=== PATIENT | female | born 1935 | race Caucasian/White ===

== ENCOUNTER 2017-10-25 17:40 | Emergency (ER) | payer MEDICARE, OTHER ==
[2017-10-25 18:07] VITALS: BP 141/48
--- NOTE | 2017-10-25 18:15 | EDM.PDOC ---
ED HPI GENERAL MEDICAL PROBLEM - General Chief Complaint: Lower Extremity Injury/Pain Stated Complaint: BROKEN TOE Time Seen by Provider: 10/25/17 18:10 Source of Information: Reports: Patient History Limitations: Reports: No Limitations - History of Present Illness INITIAL COMMENTS - FREE TEXT/NARRATIVE: 82 yo female here with R 5th toe pain after injuring it shortly before arrival. Was changing the cover on her ironing board and caught her toe. Thinks its broken. 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) (none) Right 5-Little toe Pain Score (Numeric/FACES): 1 - Related Data Allergies Allergy/AdvReac Type Severity Reaction Status Date / Time No Known Allergies Allergy Verified 09/18/13 08:54 Home Meds: Home Meds Aspirin [Adult Low Dose Aspirin EC] 81 mg PO DAILY 09/18/13 [History] Calcium Carbonate [Calcium] 1 tab PO DAILY 09/18/13 [History] Insulin Aspart [NovoLOG] 3 unit SQ QID 09/18/13 [History] Insulin Glarg,Human.Rec.Analog [LantUS] 7 unit SUBCUT BEDTIME 09/18/13 [History] Levothyroxine 100 mcg PO ACBRK 09/18/13 [History] Multivitamin [Multi Vitamin Daily] 1 each PO DAILY 09/18/13 [History] [place]-3 Fatty Acids/Fish Oil [Fish Oil 1,200 mg Softgel] 1 each PO DAILY [History] PARoxetine [Paxil] 20 mg PO DAILY 09/18/13 [History] Simvastatin [Zocor] 20 mg PO BEDTIME 09/18/13 [History] Cholecalciferol (Vitamin D3) [Vitamin D3] 1 tab PO DAILY 10/25/17 [History] Past Medical History Other HEENT History: Tooth extraction 12/02/[address] Piyush Escamilla Other Genitourinary History: DM II x 55 years Review of Systems - Review of Systems Review Of Systems: See Below Constitutional: Reports: No Symptoms Musculoskeletal: Reports: Other (R 5th toe pain) Skin: Reports: No Symptoms Neurological: Reports: No Symptoms ED EXAM, GENERAL - Physical Exam Exam: See Below Exam Limited By: No Limitations General Appearance: Alert, WD/WN, No Apparent Distress Extremities: Normal Inspection, No Pedal Edema, Other (R 5th toe tender with palpation, grossly normal on inspection. ). No: Non-Tender, Pedal Edema, Increased Warmth, Mottled, Redness Neurological: Alert, Oriented, CN II-XII Intact, Normal Cognition, No Motor/ Sensory Deficits Psychiatric: Normal Affect, Normal Mood Skin Exam: Warm, Dry, Intact, Normal Color, No Rash Course - Vital Signs Last Recorded V/S: Last Vital Signs Temp 35.7 C 10/25/17 18:10 Pulse 60 10/25/17 18:10 Resp 16 10/25/17 18:10 BP 141/48 H 10/25/17 18:10 Pulse Ox 97 10/25/17 18:10 - Orders/Labs/Meds Orders: Active Orders 24 hr Category Date Time Status Toes Fifth Digit Rt T9 [CR] Stat Exams 10/25/17 18:18 Ordered - Radiology Interpretation Free Text/Narrative:: X-ray R 5th toe-? fx of the prox aspect of the proximal phalanx Departure - Departure Time of Disposition: 18:40 Disposition: Home, Self-Care 01 Condition: Good Clinical Impression: Toe fracture, right Qualifiers: Encounter type: initial encounter Toe: lesser toe Fracture type: closed Phalanx : proximal Fracture alignment: nondisplaced Qualified Code(s): S92.514A - Nondisplaced fracture of proximal phalanx of right lesser toe(s), initial encounter for closed fracture - Discharge Information *PRESCRIPTION DRUG MONITORING PROGRAM REVIEWED*: Not Applicable *COPY OF PRESCRIPTION DRUG MONITORING REPORT IN PATIENT KI: Not Applicable Referrals: PCP,None [Primary Care Provider] - Forms: ED Department Discharge Additional Instructions: Keep toe elevated. Wear post-op shoe for support. Take acetaminophen and/or ibuprofen. Recheck as needed. - My Orders Last 24 Hours: My Active Orders 10/25/17 18:18 Toes Fifth Digit Rt T9 [CR] Stat - Assessment/Plan Last 24 Hours: My Active Orders 10/25/17 18:18 Toes Fifth Digit Rt T9 [CR] Stat
--- NOTE | 2017-10-26 10:16 | CR ---
Right toes There is mild irregularity at the base of the proximal phalanx fifth toe. If there is focal pain at t his location a nondisplaced fracture cannot be excluded. There are hammertoe deformities. The soft ti ssues are unremarkable. Impression: 1. A nondisplaced fracture the proximal phalanx fifth toe cannot be excluded. Clinical correlation re commended.
== END 2017-10-25 18:52 | disposition home or self-care (01) ==
LOC: JP.ED 17:40
DX: S92.514A Nondisplaced fracture of proximal phalanx of right lesser toe(s), initial encounter for closed fracture (principal); Z79.4 Long term (current) use of insulin; Z79.82 Long term (current) use of aspirin; Z79.899 Other long term (current) drug therapy; W22.8XXA Striking against or struck by other objects, initial encounter; E11.9 Type 2 diabetes mellitus without complications
CPT/HCPCS: 73660-26-T9; 73660-T9; 99284

== ENCOUNTER 2019-09-10 17:49 | Inpatient (IN) | payer MEDICARE, OTHER ==
--- NOTE | 2019-09-10 18:38 | EDM.PDOC ---
ED HPI GENERAL MEDICAL PROBLEM - General Chief Complaint: Gastrointestinal Problem Stated Complaint: DIABETIC, VOMITING Time Seen by Provider: 09/10/19 19:53 Source of Information: Reports: Patient History Limitations: Reports: No Limitations - History of Present Illness INITIAL COMMENTS - FREE TEXT/NARRATIVE: 83-year-old female with a history of type 1 diabetes mellitus resents to the ED with acute abdominal pain that is progressively worsening through the day. Onset was this morning when she got out of bed. She has had little intake but continues to urinate on a regular basis. She had a small bowel movement yesterday. Today she is not passing gas. She feels nauseated and has retched but denies emesis. Her blood sugars have been over 200 through the day. Gave herself a small amount of insulin (3 units of regular insulin on a sliding scale). She had a tick bite a week ago and was prescribed a prophylactic doxycycline dose. She went to the clinic today because of abdominal pain. A blood test was obtained however the results were not available to me. She noted her pain worsened through the day and presented to the ED for further evaluation. She has a history of a small bowel obstruction a few years ago. She has had an appendectomy and a tubal ligation in the past. She denies chills or fever. She has a history of atrial fib and takes daily Eliquis. Abdomen Pain Score (Numeric/FACES): 7 - Related Data Allergies Allergy/AdvReac Type Severity Reaction Status Date / Time No Known Allergies Allergy Verified 09/10/19 18:46 Home Meds: Home Meds Calcium Carbonate [Calcium] 1 tab PO DAILY 09/18/13 [History] Insulin Aspart [NovoLOG] 0 unit SQ QID 09/18/13 [History] Insulin Glarg,Human.Rec.Analog [LantUS] 8 unit SUBCUT BEDTIME 09/18/13 [History] Levothyroxine 100 mcg PO ACBRK 09/18/13 [History] Multivitamin [Multi Vitamin Daily] 1 each PO DAILY 09/18/13 [History] [place]-3 Fatty Acids/Fish Oil [Fish Oil 1,200 mg Softgel] 1 each PO DAILY 09/18/13 [History] PARoxetine [Paxil] 20 mg PO DAILY 09/18/13 [History] Simvastatin [Zocor] 20 mg PO BEDTIME 09/18/13 [History] Cholecalciferol (Vitamin D3) [Vitamin D3] 1 tab PO DAILY 10/25/17 [History] Amiodarone [Cordarone] 200 mg PO DAILY 09/10/19 [History] Apixaban [Eliquis] 2.5 mg PO BID 09/10/19 [History] Zolpidem Tartrate 10 mg PO BEDTIME PRN 09/10/19 [History] Past Medical History Other HEENT History: Tooth extraction 12/02/[address] 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 Denies: Fever, Chills Respiratory: Denies: Shortness of Breath Cardiovascular: Denies: Chest Pain Endocrine: Denies: Polydypsia, Polyuria GI/Abdominal: Reports: Nausea, Vomiting. Denies: Flatus : Denies: Dysuria Neurological: Reports: No Symptoms. Denies: Confusion ED EXAM, GI/ABD - Physical Exam Exam: See Below Exam Limited By: No Limitations General Appearance: Alert, WD/WN, Moderate Distress Eyes: Bilateral: Normal Appearance Ears: Normal External Exam, Normal Canal, Normal TMs Throat/Mouth: Normal Inspection Head: Normocephalic Neck: Normal Inspection, Supple, Non-Tender Respiratory/Chest: No Respiratory Distress, Lungs Clear, Normal Breath Sounds Cardiovascular: Normal Peripheral Pulses, Regular Rate, Rhythm GI/Abdominal Exam: Distended, Other (All sounds are hyperactive. She is generally tender on palpation all quadrants.) Neurological: Alert, Oriented, Normal Cognition Course - Vital Signs Text/Narrative:: This patient presented to the emergency department with acute abdominal pain, distention, nausea and vomiting. Her symptoms started with abdominal pain this morning. She went to the clinic and had a nonacute exam and labs. She was discharged home but her symptoms worsen. She came into the ED for further ev aluation. She has a history of an appendectomy, diabetes mellitus type 2 and atrial fibrillation. She is anticoagulated with Eliquis. Patient's exam revealed a generalized tender abdomen with increased bowel sounds. She had normal white blood count, lipase and liver function test. Her basic metabolic profile was unremarkable. She had a nonacute appearing ECG. 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 Dr. Dubois, surgeon was consulted and will be evaluating the patient for possible surgery today. The patient's pain was treated initially with fentanyl. It was switched to Dilaudid. She was given a liter of fluids. Last Recorded V/S: Last Vital Signs Temp 36.0 C L 09/10/19 18:40 Pulse 73 09/10/19 21:23 Resp 16 09/10/19 21:23 BP 196/73 H 09/10/19 21:23 Pulse Ox 100 09/10/19 21:23 - Orders/Labs/Meds Orders: Active Orders 24 hr Category Date Time Status EKG Documentation Completion [RC] ASDIRECTED Care 09/10/19 19:52 Active UA W/MICROSCOPIC [URIN] Stat Lab 09/10/19 19:50 Ordered Sodium Chloride 0.9% [Normal Saline] 1,000 ml Med 09/10/19 20:00 Active IV ASDIRECTED Sodium Chloride 0.9% [Normal Saline] 100 ml Med 09/10/19 20:15 Active IV ASDIRECTED EKG 12 Lead [EK] Stat Ther 09/10/19 19:52 Ordered Medication Orders Sodium Chloride (Normal Saline) 1,000 mls @ 1,000 mls/hr IV ASDIRECTED FRANCISCA Last Admin: 09/10/19 21:25 Dose: 1,000 mls/hr Documented by: HANK Sodium Chloride (Normal Saline) 100 mls @ 3 mls/sec IV ASDIRECTED FRANCISCA Last Admin: 09/10/19 21:25 Dose: 3 mls/sec Documented by: KITA Labs: Laboratory Tests 09/10/19 09/10/19 09/10/19 Range/Units 20:00 20:00 20:00 WBC 8.3 (4.5-11.0) K/uL RBC 4.13 (3.30-5.50) M/uL Hgb 12.0 (12.0-15.0) g/dL Hct 37.6 (36.0-48.0) % MCV 91 (80-98) fL MCH 29 (27-31) pg MCHC 32 (32-36) % Plt Count 219 (150-400) K/uL PT (9.5-12.0) sec INR (0.80-1.20) APTT (27.0-36.0) sec Sodium 135 L (140-148) mmol/L Potassium 4.3 (3.6-5.2) mmol/L Chloride 98 L (100-108) mmol/L Carbon Dioxide 27 (21-32) mmol/L Anion Gap 14.3 H (5.0-14.0) mmol/L BUN 20 H (7-18) mg/dL Creatinine 1.0 (0.6-1.0) mg/dL Est Cr Clr Drug Dosing 34.64 mL/min Estimated GFR (MDRD) 53 L (>60) Glucose 272 H (74-106) mg/dL Lactic Acid 1.1 (0.4-2.0) mmol/L Calcium 8.8 (8.5-10.1) mg/dL Total Bilirubin 0.7 D (0.2-1.0) mg/dL AST 25 (15-37) U/L ALT 31 (12-78) U/L Alkaline Phosphatase 56 (46-116) U/L Troponin I (0.000-0.056) ng/mL Total Protein 7.1 (6.4-8.2) g/dL Albumin 3.7 (3.4-5.0) g/dL Globulin 3.4 (2.3-3.5) g/dL Albumin/Globulin Ratio 1.1 L (1.2-2.2) Lipase 41 L (73-393) U/L Ketones (NEGATIVE) 09/10/19 09/10/19 09/10/19 Range/Units 20:00 20:00 20:00 WBC (4.5-11.0) K/uL RBC (3.30-5.50) M/uL Hgb (12.0-15.0) g/dL Hct (36.0-48.0) % MCV (80-98) fL MCH (27-31) pg MCHC (32-36) % Plt Count (150-400) K/uL PT 10.9 (9.5-12.0) sec INR 1.01 (0.80-1.20) APTT 26.4 L (27.0-36.0) sec Sodium (140-148) mmol/L Potassium (3.6-5.2) mmol/L Chloride (100-108) mmol/L Carbon Dioxide (21-32) mmol/L Anion Gap (5.0-14.0) mmol/L BUN (7-18) mg/dL Creatinine (0.6-1.0) mg/dL Est Cr Clr Drug Dosing mL/min Estimated GFR (MDRD) (>60) Glucose (74-106) mg/dL Lactic Acid (0.4-2.0) mmol/L Calcium (8.5-10.1) mg/dL Total Bilirubin (0.2-1.0) mg/dL AST (15-37) U/L ALT (12-78) U/L Alkaline Phosphatase (46-116) U/L Troponin I < 0.017 (0.000-0.056) ng/mL Total Protein (6.4-8.2) g/dL Albumin (3.4-5.0) g/dL Globulin (2.3-3.5) g/dL Albumin/Globulin Ratio (1.2-2.2) Lipase (73-393) U/L Ketones Negative (NEGATIVE) Meds: Medications Generic Name Dose Route Start Last Admin Trade Name Freq PRN Reason Stop Dose Admin Sodium Chloride 1,000 mls @ 1,000 mls/hr 09/10/19 20:00 09/10/19 21:25 Normal Saline IV 1,000 mls/hr ASDIRECTED FRANCISCA Administration Sodium Chloride 100 mls @ 3 mls/sec 09/10/19 20:15 09/10/19 21:25 Normal Saline IV 3 mls/sec ASDIRECTED FRANCISCA Administration Discontinued Medications Generic Name Dose Route Start Last Admin Trade Name Freq PRN Reason Stop Dose Admin Fentanyl 50 mcg 09/10/19 19:47 09/10/19 20:32 Sublimaze IVPUSH 09/10/19 19:48 50 mcg ONETIME ONE Administration Fentanyl 50 mcg 09/10/19 21:27 09/10/19 21:34 Sublimaze IVPUSH 09/10/19 21:28 50 mcg ONETIME ONE Administration Iopamidol 100 ml 09/10/19 20:06 09/10/19 21:25 Isovue-300 (61%) IV 09/10/19 20:07 100 ml ONETIME ONE Administration Ondansetron HCl 4 mg 09/10/19 19:47 09/10/19 20:27 Zofran IVPUSH 09/10/19 19:48 4 mg ONETIME ONE Administration Sodium Chloride 10 ml 09/10/19 20:06 09/10/19 21:25 Saline Flush FLUSH 09/10/19 20:07 10 ml ONETIME ONE Administration Departure - Departure Time of Disposition: 22:13 Disposition: Admitted As Inpatient 65 Condition: Fair Clinical Impression: Cecal volvulus - Discharge Information Referrals: PCP,None [Primary Care Provider] - Forms: ED Department Discharge Additional Instructions: Patient admitted for probable surgery. Sepsis Event Note (ED) - Focused Exam Vital Signs: Vital Signs Temp Pulse Resp BP Pulse Ox 09/10/19 21:23 73 16 196/73 H 100 09/10/19 20:55 185/70 H 09/10/19 20:25 69 16 197/78 H 99 09/10/19 18:40 36.0 C L 59 L 16 187/73 H 97 09/10/19 18:33 36.0 C L 59 L 16 187/73 H 97 - My Orders Last 24 Hours: My Active Orders 09/10/19 19:50 UA W/MICROSCOPIC [URIN] Stat 09/10/19 19:52 EKG Documentation Completion [RC] ASDIRECTED EKG 12 Lead [EK] Stat 09/10/19 20:00 Sodium Chloride 0.9% [Normal Saline] 1,000 ml IV ASDIRECTED 09/10/19 20:15 Sodium Chloride 0.9% [Normal Saline] 100 ml IV ASDIRECTED - Assessment/Plan Last 24 Hours: My Active Orders 09/10/19 19:50 UA W/MICROSCOPIC [URIN] Stat 09/10/19 19:52 EKG Documentation Completion [RC] ASDIRECTED EKG 12 Lead [EK] Stat 09/10/19 20:00 Sodium Chloride 0.9% [Normal Saline] 1,000 ml IV ASDIRECTED 09/10/19 20:15 Sodium Chloride 0.9% [Normal Saline] 100 ml IV ASDIRECTED
[2019-09-10] MEDS ORDERED: fentaNYL 100 MCG/2 ML SDV IVPUSH ONE ×2 (19:47→21:27)
[2019-09-10] MEDS ORDERED: Ondansetron 4 MG/2 ML SDV IVPUSH ONE (19:47)
[2019-09-10] MEDS ORDERED: Sodium Chloride 0.9% 1,000 ML IV SCH (20:00)
[2019-09-10] MEDS ORDERED: Iopamidol 612 MG/ML 500 ML Multipack Bottle IV ONE (20:06)
[2019-09-10] MEDS ORDERED: Sodium Chloride 0.9% 100 ML IV SCH (20:15)
[2019-09-10] MEDS: Sodium Chloride 0.9% 10 ML Syringe FLUSH ONE ×2 (20:38→21:25)
--- NOTE | 2019-09-10 22:00 | CRLCT ---
INDICATION: Abdominal pain and distension TECHNIQUE: CT abdomen and pelvis acquired with 100 cc Isovue-300 IV contrast. COMPARISON: None FINDINGS: Lower chest: Unremarkable. Liver: Unremarkable. Spleen: Unremarkable. Pancreas: Unremarkable. Gallbladder and bile ducts: Unremarkable. Adrenal glands: Unremarkable. Kidneys: Unremarkable. 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 The cecum is located in the left upper quadrant. The cecum is dilated with feces and air to a maximum diameter of 7.8 cm. The point of twisting can be seen on images numbers [id number] series 2. There is no free air or pneumatosis. There is a small amount of free fluid in the upper abdomen. Vascular structures: Unremarkable. Lymph nodes: Unremarkable. Miscellaneous: Small fat containing bilateral inguinal hernias. Pelvic Organs: Unremarkable. Bones: Unremarkable for age. IMPRESSION: Cecal volvulus. No free air or pneumatosis. Surgical consultation recommended. Findings discussed with Gerardo Drummond at 9:58 p.m. on September 10, 2019. Please note that all CT scans at this facility use dose modulation, iterative reconstruction, and/or weight-based dosing when appropriate to reduce radiation dose to as low as reasonably achievable. Dictated by Sharon Shi MD @ Sep 10 2019 9:46PM Signed by Dr. Sharon Shi @ Sep 10 2019 9:59PM
[2019-09-10] MEDS ORDERED: HYDROmorphone 1 MG/ML Syringe IVPUSH ONE (22:08)
[2019-09-10] MEDS ORDERED: Bupivacaine 0.5%/EPINEPHrine 1:200,000 50 ML MDV ONE (22:49)
[2019-09-10] MEDS ORDERED: metroNIDAZOLE/Normal Saline 100 ML ONE (22:51)
[2019-09-10] MEDS ORDERED: hydrOXYzine HCL 100 MG/2 ML SDV IM PRN (22:52)
[2019-09-10] MEDS ORDERED: Benzocaine/Cetylpyridinium/Menthol Lozenge MUCMEM PRN (22:52)
[2019-09-10] MEDS ORDERED: ceFAZolin 1 GM Vial ONE (22:53)
[2019-09-10] MEDS ORDERED: Sodium Chloride 0.9% 10 ML ONE (22:53)
[2019-09-10] MEDS ORDERED: Rocuronium 50 MG/5 ML Vial ONE (22:54)
[2019-09-10] MEDS ORDERED: Succinylcholine 200 MG/10 ML MDV ONE (22:54)
[2019-09-10] MEDS ORDERED: Ondansetron 4 MG/2 ML SDV ONE (22:54)
[2019-09-10] MEDS ORDERED: Propofol 200 MG/20 ML SDV ONE (22:54)
[2019-09-10] MEDS ORDERED: Neostigmine Methylsulfate 1 MG/ML 5 ML Syringe ONE (22:54)
[2019-09-10] MEDS ORDERED: Dexamethasone 4 MG/ML SDV ONE (22:54)
[2019-09-10] MEDS ORDERED: Glycopyrrolate 0.2 MG/ML 5 ML MDV ONE (22:54)
[2019-09-10] MEDS ORDERED: fentaNYL 250 MCG/5 ML SDV ONE (22:55)
[2019-09-10] MEDS ORDERED: metroNIDAZOLE/Normal Saline 500 MG in Premix Bag 1 BAG IV ONE (22:55)
[2019-09-10] MEDS ORDERED: Sodium Chloride 0.9% 20 ML ONE (23:05)
[2019-09-10] MEDS ORDERED: Scopolamine 1.5 MG Transdermal Patch ONE (23:33)
[2019-09-10] MEDS ORDERED: Lactated Ringers 1,000 ML ONE (23:40)
[2019-09-10] MEDS ORDERED: Ropivacaine 30 ML, dexAMETHasone 8 MG, EPINEPHrine 0.4 MG, Sodium Chloride 0.9% 47.6 ML NERVRT SCH ×4 (23:45)
[2019-09-10] MEDS ORDERED: fentaNYL 100 MCG/2 ML SDV ONE (23:51)
[2019-09-11] MEDS ORDERED: HYDROmorphone/Normal Saline 15 MG/30 ML PCA IV ONE (00:15)
[2019-09-11] MEDS ORDERED: HYDROmorphone/Normal Saline 15 MG/30 ML PCA IV PRN (00:19)
[2019-09-11] MEDS ORDERED: Naloxone 0.4 MG/ML SDV IV PRN (01:00)
[2019-09-11] MEDS: Sodium Chloride 0.9% 1,000 ML IV SCH ×2 (03:23→11:31)
[2019-09-11] MEDS ORDERED: Sodium Chloride 0.9% 250 ML IV SCH (03:30)
[2019-09-11] MEDS ORDERED: Sodium Chloride 0.9% 1,000 ML IV SCH ×2 (05:30→12:30)
[2019-09-11] MEDS: Sodium Chloride 0.9% 250 ML IV ONE ×2 (05:42→06:05)
--- NOTE | 2019-09-11 11:15 | PN ---
DATE OF SERVICE: 09/11/2019 SUBJECTIVE: The patient is doing great. Particularly, pain is well controlled. No nausea, vomiting, shortness of breath, or chest pain. No GI activity yet. OBJECTIVE: VITAL SIGNS: Stable. CARDIOVASCULAR: Regular rhythm and rate. RESPIRATORY: Lungs clear to auscultation bilaterally. SKIN: Incision dressing intact. ASSESSMENT: Status post sigmoid colon resection. PLAN: No need for transfusion today. We will work on diet. Start her on a clear liquid diet. Start Entereg. Hospitalist Service will see the patient today for general medical management. Lincoln Dubois MD /[id number]
[2019-09-11] MEDS ORDERED: Insulin Lispro 100 Unit/ML 3 ML KwikPen SUBCUT ONE ×3 (12:16→17:41)
--- NOTE | 2019-09-11 12:19 | PCM.CONS ---
H&P History of Present Illness - General Date of Service: 09/11/19 Admit Problem/Dx: Admission Diagnosis/Problem Admission Diagnosis/Problem Volvulus of colon Source of Information: Patient, Family, Provider History Limitations: Reports: No Limitations - History of Present Illness Initial Comments - Free Text/Narative: CC: My belly hurt so bad HPI: Bertha presented to the emergency room last night with abdominal pain and nausea. Work-up in the emergency room was suggestive of a sigmoid volvulus. She was taken urgently to surgery for surgical repair. I was asked to see her this morning by Dr. Dubois regarding diabetes management as well as medical management of atrial fibrillation. Bertha reports that she has moderate abdominal pain that she describes as sore. The pain has been slowly getting better since surgery. She has not had to use the [employer] pump very much but when she does it provides almost immediate benefit. Pain is worse when she is trying to move around. She did tolerate some clear liquids this morning. She has not had any fevers. Blood sugars were moderately elevated overnight and have risen since that time with a blood sugar of more than 400 at lunchtime today. She does not have significant nausea. She does not feel short of breath. She had been feeling well prior to onset of symptoms yesterday. Abdomen Pain Score (Numeric/FACES): 5 - Related Data Allergies/Adverse Reactions: Allergies Allergy/AdvReac Type Severity Reaction Status Date / Time No Known Allergies Allergy Verified 09/10/19 18:46 Home Medications: Home Meds Calcium Carbonate [Calcium] 1 tab PO DAILY 09/18/13 [History] Insulin Aspart [NovoLOG] 0 unit SQ QID 09/18/13 [History] Insulin Glarg,Human.Rec.Analog [LantUS] 8 unit SUBCUT BEDTIME 09/18/13 [History] Levothyroxine 100 mcg PO ACBRK 09/18/13 [History] Multivitamin [Multi Vitamin Daily] 1 each PO DAILY 09/18/13 [History] [place]-3 Fatty Acids/Fish Oil [Fish Oil 1,200 mg Softgel] 1 each PO DAILY 10/25 [History] PARoxetine [Paxil] 20 mg PO DAILY 09/18/13 [History] Simvastatin [Zocor] 20 mg PO BEDTIME 09/18/13 [History] Cholecalciferol (Vitamin D3) [Vitamin D3] 1 tab PO DAILY 10/25/17 [History] Amiodarone [Cordarone] 200 mg PO DAILY 09/10/19 [History] Apixaban [Eliquis] 2.5 mg PO BID 09/10/19 [History] Zolpidem Tartrate 10 mg PO BEDTIME PRN 09/10/19 [History] Doxycycline Monohydrate 100 mg PO BID 09/11/19 [History] Past Medical History Other HEENT History: Tooth extraction 12/02/[address] 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 Pertinent positives and negatives are noted in the history of present illness. All other systems were reviewed and were negative except as noted. Exam - Exam Exam: See Below - Vital Signs Vital Signs: Last Vital Signs Temp 36.4 C 09/11/19 07:33 Pulse 75 09/11/19 07:33 Resp 15 09/11/19 07:33 BP 124/41 L 09/11/19 07:33 Pulse Ox 95 09/11/19 07:33 Weight: 58.06 kg - Exam Quality Assessment: Supplemental Oxygen General: Alert, Oriented, Cooperative. No: Mild Distress HEENT: Conjunctiva Clear, Mucosa Moist & [place]. No: Scleral Icterus Neck: Supple, Trachea Midline Lungs: Clear to Auscultation, Normal Respiratory Effort Cardiovascular: Regular Rate, Regular Rhythm GI/Abdominal Exam: Normal Bowel Sounds, Soft, No Distention, Tender Extremities: No Pedal Edema. No: Increased Warmth Peripheral Pulses: 2+: Dorsalis Pedis (L), Dorsalis Pedis (R) Skin: Warm, Dry Neuro Extensive - Mental Status: Alert, Nl Response to Commands Neuro Extensive - Motor, Sensory, Reflexes: No: Dysarthria, Abnormal Motor, Trem or Psychiatric: Alert, Normal Affect - Patient Data Lab Results Last 24 hrs: Laboratory Results - last 24 hr 09/10/19 09/10/19 09/10/19 Range/Units 20:00 20:00 20:00 WBC 8.3 (4.5-11.0) K/uL RBC 4.13 (3.30-5.50) M/uL Hgb 12.0 (12.0-15.0) g/dL Hct 37.6 (36.0-48.0) % MCV 91 (80-98) fL MCH 29 (27-31) pg MCHC 32 (32-36) % Plt Count 219 (150-400) K/uL Neut % (Auto) (36-66) % Lymph % (Auto) (24-44) % [place] % (Auto) (2-6) % Eos % (Auto) (2-4) % Baso % (Auto) (0-1) % PT (9.5-12.0) sec INR (0.80-1.20) APTT (27.0-36.0) sec Sodium 135 L (140-148) mmol/L Potassium 4.3 (3.6-5.2) mmol/L Chloride 98 L (100-108) mmol/L Carbon Dioxide 27 (21-32) mmol/L Anion Gap 14.3 H (5.0-14.0) mmol/L BUN 20 H (7-18) mg/dL Creatinine 1.0 (0.6-1.0) mg/dL Est Cr Clr Drug Dosing 34.64 mL/min Estimated GFR (MDRD) 53 L (>60) Glucose 272 H (74-106) mg/dL Lactic Acid 1.1 (0.4-2.0) mmol/L Calcium 8.8 (8.5-10.1) mg/dL Total Bilirubin 0.7 D (0.2-1.0) mg/dL AST 25 (15-37) U/L ALT 31 (12-78) U/L Alkaline Phosphatase 56 (46-116) U/L Troponin I (0.000-0.056) ng/mL Total Protein 7.1 (6.4-8.2) g/dL Albumin 3.7 (3.4-5.0) g/dL Globulin 3.4 (2.3-3.5) g/dL Albumin/Globulin Ratio 1.1 L (1.2-2.2) Lipase 41 L (73-393) U/L Urine Color (YELLOW) Urine Appearance (CLEAR) Urine pH (5.0-8.0) Ur Specific [place] (1.008-1.030) Urine Protein (NEGATIVE) mg/dL Urine Glucose (UA) (NEGATIVE) mg/dL Urine Ketones (NEGATIVE) mg/dL Urine Occult Blood (NEGATIVE) Urine Nitrite (NEGATIVE) Urine Bilirubin (NEGATIVE) Urine Urobilinogen (0.2-1.0) EU/dL Ur Leukocyte Esterase (NEGATIVE) Urine RBC (0-5) Urine WBC (0-5) Ur Epithelial Cells Amorphous Sediment Urine Bacteria Urine Mucus Ketones (NEGATIVE) 09/10/19 09/10/19 09/10/19 Range/Units 20:00 20:00 20:00 WBC (4.5-11.0) K/uL RBC (3.30-5.50) M/uL Hgb (12.0-15.0) g/dL Hct (36.0-48.0) % MCV (80-98) fL MCH (27-31) pg MCHC (32-36) % Plt Count (150-400) K/uL Neut % (Auto) (36-66) % Lymph % (Auto) (24-44) % [place] % (Auto) (2-6) % Eos % (Auto) (2-4) % Baso % (Auto) (0-1) % PT 10.9 (9.5-12.0) sec INR 1.01 (0.80-1.20) APTT 26.4 L (27.0-36.0) sec Sodium (140-148) mmol/L Potassium (3.6-5.2) mmol/L Chloride (100-108) mmol/L Carbon Dioxide (21-32) mmol/L Anion Gap (5.0-14.0) mmol/L BUN (7-18) mg/dL Creatinine (0.6-1.0) mg/dL Est Cr Clr Drug Dosing mL/min Estimated GFR (MDRD) (>60) Glucose (74-106) mg/dL Lactic Acid (0.4-2.0) mmol/L Calcium (8.5-10.1) mg/dL Total Bilirubin (0.2-1.0) mg/dL AST (15-37) U/L ALT (12-78) U/L Alkaline Phosphatase (46-116) U/L Troponin I < 0.017 (0.000-0.056) ng/mL Total Protein (6.4-8.2) g/dL Albumin (3.4-5.0) g/dL Globulin (2.3-3.5) g/dL Albumin/Globulin Ratio (1.2-2.2) Lipase (73-393) U/L Urine Color (YELLOW) Urine Appearance (CLEAR) Urine pH (5.0-8.0) Ur Specific [place] (1.008-1.030) Urine Protein (NEGATIVE) mg/dL Urine Glucose (UA) (NEGATIVE) mg/dL Urine Ketones (NEGATIVE) mg/dL Urine Occult Blood (NEGATIVE) Urine Nitrite (NEGATIVE) Urine Bilirubin (NEGATIVE) Urine Urobilinogen (0.2-1.0) EU/dL Ur Leukocyte Esterase (NEGATIVE) Urine RBC (0-5) Urine WBC (0-5) Ur Epithelial Cells Amorphous Sediment Urine Bacteria Urine Mucus Ketones Negative (NEGATIVE) 09/10/19 09/11/19 09/11/19 Range/Units 22:25 05:30 05:30 WBC 11.9 H (4.5-11.0) K/uL RBC 3.83 (3.30-5.50) M/uL Hgb 11.3 L (12.0-15.0) g/dL Hct 35.7 L (36.0-48.0) % MCV 93 (80-98) fL MCH 30 (27-31) pg MCHC 32 (32-36) % Plt Count 187 (150-400) K/uL Neut % (Auto) 93 H (36-66) % Lymph % (Auto) 2 L (24-44) % [place] % (Auto) 5 (2-6) % Eos % (Auto) 0 L (2-4) % Baso % (Auto) 0 (0-1) % PT (9.5-12.0) sec INR (0.80-1.20) APTT (27.0-36.0) sec Sodium 137 L (140-148) mmol/L Potassium 4.3 (3.6-5.2) mmol/L Chloride 103 (100-108) mmol/L Carbon Dioxide 22 (21-32) mmol/L Anion Gap 16.3 H (5.0-14.0) mmol/L BUN 17 (7-18) mg/dL Creatinine 1.0 (0.6-1.0) mg/dL Est Cr Clr Drug Dosing 34.64 mL/min Estimated GFR (MDRD) 53 L (>60) Glucose 341 H (74-106) mg/dL Lactic Acid (0.4-2.0) mmol/L Calcium 7.5 L (8.5-10.1) mg/dL Total Bilirubin (0.2-1.0) mg/dL AST (15-37) U/L ALT (12-78) U/L Alkaline Phosphatase (46-116) U/L Troponin I (0.000-0.056) ng/mL Total Protein (6.4-8.2) g/dL Albumin (3.4-5.0) g/dL Globulin (2.3-3.5) g/dL Albumin/Globulin Ratio (1.2-2.2) Lipase (73-393) U/L Urine Color Yellow (YELLOW) Urine Appearance Clear (CLEAR) Urine pH 7.0 (5.0-8.0) Ur Specific [place] 1.020 (1.008-1.030) Urine Protein Negative (NEGATIVE) mg/dL Urine Glucose (UA) 500 H (NEGATIVE) mg/dL Urine Ketones 80 H (NEGATIVE) mg/dL Urine Occult Blood Trace-intact H (NEGATIVE) Urine Nitrite Negative (NEGATIVE) Urine Bilirubin Negative (NEGATIVE) Urine Urobilinogen 0.2 (0.2-1.0) EU/dL Ur Leukocyte Esterase Negative (NEGATIVE) Urine RBC 0-5 (0-5) Urine WBC Not seen (0-5) Ur Epithelial Cells Not seen Amorphous Sediment Not seen Urine Bacteria Not seen Urine Mucus Not seen Ketones (NEGATIVE) Result Diagrams: 09/11/19 05:30 09/11/19 05:30 Imaging Impressions Last 24 hrs: CT scan of the abdomen and pelvis-images personally reviewed-there appears to be a cecal volvulus. No free air or evidence for perforation. No other acute findings. Sepsis Event Note - Evaluation Sepsis Screening Result: No Definite Risk - Focused Exam Vital Signs: Vital Signs Temp Temp Pulse Resp BP BP Pulse Ox 09/11/19 07:33 36.4 C 75 15 124/41 L 95 09/11/19 07:22 94 L 09/11/19 04:30 36.5 C 76 16 120/60 95 09/11/19 03:00 76 16 110/60 95 09/11/19 02:30 73 16 116/48 L 95 09/11/19 02:00 73 116/54 L 09/11/19 01:30 75 16 130/42 L 96 09/11/19 01:15 72 16 137/80 98 09/11/19 01:14 98 09/11/19 01:00 36.8 C 72 16 154/45 H 99 09/11/19 00:40 36.0 C L 72 16 160/54 H 99 09/11/19 00:35 73 16 162/57 H 98 09/11/19 00:30 76 16 172/63 H 99 09/11/19 00:25 78 16 182/63 H 99 09/11/19 00:20 36.2 C 82 16 183/66 H 99 Date Exam was Performed: 09/11/19 Time Exam was Performed: 16:32 *Q Meaningful Use (ADM) - VTE Risk Assess *Q Each Risk Factor Represents 1 Point: None Total Score 1 Point Risk Factors: 0 Each Risk Factor Represents 2 Points: Major surgery greater than 45 minutes Total Score 2 Point Risk Factors: 2 Each Risk Factor Represents 3 Points: Age 75 Years or Greater Total Score 3 Point Risk Factors: 3 Each Risk Factor Represents 5 Points: None Total Score 5 Point Risk Factors: 0 Venous Thromboembolism Risk Factor Score *Q: 5 Consult PN Assessment/Plan POD#: 1 Procedures: Procedures ASSAY OF TROPONIN QUANT (09/18/13) ASSAY THYROID STIM HORMONE (09/18/13) COMPLETE CBC W/AUTO DIFF WBC (09/18/13) COMPREHEN METABOLIC PANEL (09/18/13) ECG/MONITORING AND ANALYSIS (11/13/13) EMERGENCY DEPT VISIT (10/25/17) EMERGENCY DEPT VISIT (12/05/14) EMERGENCY DEPT VISIT (12/05/14) EMERGENCY DEPT VISIT (09/18/13) REMOTE 30 DAY ECG REV/REPORT (11/13/13) ROUTINE VENIPUNCTURE (09/18/13) X-RAY EXAM OF TOE(S) (10/25/17) Problem List Initiated/Reviewed/Updated: Yes My Orders Last 24 Hours: My Active Orders 09/11/19 08:22 Communication Order [RC] PRN Communication Order [RC] PRN Diabetes Education [RC] Click to Edit Notify Provider [RC] PRN 09/11/19 11:00 Insulin Lispro [HumaLOG] See Protocol SUBCUT QIDACANDBED 09/11/19 12:16 Insulin Lispro [HumaLOG] 5 unit SUBCUT ONETIME ONE 09/11/19 12:30 Sodium Chloride 0.9% [Normal Saline] 1,000 ml IV ASDIRECTED 09/11/19 13:30 GLUCOSE POC LAB TO COLLECT [POC] ONETIME 09/11/19 16:30 GLUCOSE POC LAB TO COLLECT [POC] QIDACANDBED 09/11/19 21:00 GLUCOSE POC LAB TO COLLECT [POC] QIDACANDBED Insulin Glarg,Human.Rec.Analog [LantUS Solostar] 8 units SUBCUT BEDTIME 09/12/19 05:00 BASIC METABOLIC PANEL,BMP [CHEM] Timed CBC W/O DIFF,HEMOGRAM [HEME] Timed (1) 09/12/19 07:30 GLUCOSE POC LAB TO COLLECT [POC] QIDACANDBED 09/12/19 11:30 GLUCOSE POC LAB TO COLLECT [POC] QIDACANDBED 09/12/19 16:30 GLUCOSE POC LAB TO COLLECT [POC] QIDACANDBED 09/12/19 21:00 GLUCOSE POC LAB TO COLLECT [POC] QIDACANDBED 09/13/19 07:30 GLUCOSE POC LAB TO COLLECT [POC] QIDACANDBED 09/13/19 11:30 GLUCOSE POC LAB TO COLLECT [POC] QIDACANDBED 09/13/19 16:30 GLUCOSE POC LAB TO COLLECT [POC] QIDACANDBED 09/13/19 21:00 GLUCOSE POC LAB TO COLLECT [POC] QIDACANDBED 09/14/19 07:30 GLUCOSE POC LAB TO COLLECT [POC] QIDACANDBED 09/14/19 11:30 GLUCOSE POC LAB TO COLLECT [POC] QIDACANDBED 09/14/19 16:30 GLUCOSE POC LAB TO COLLECT [POC] QIDACANDBED 09/14/19 21:00 GLUCOSE POC LAB TO COLLECT [POC] QIDACANDBED 09/15/19 07:30 GLUCOSE POC LAB TO COLLECT [POC] QIDACANDBED 09/15/19 11:30 GLUCOSE POC LAB TO COLLECT [POC] QIDACANDBED 09/15/19 16:30 GLUCOSE POC LAB TO COLLECT [POC] QIDACANDBED 09/15/19 21:00 GLUCOSE POC LAB TO COLLECT [POC] QIDACANDBED 09/16/19 07:30 GLUCOSE POC LAB TO COLLECT [POC] QIDACANDBED 09/16/19 11:30 GLUCOSE POC LAB TO COLLECT [POC] QIDACANDBED 09/16/19 16:30 GLUCOSE POC LAB TO COLLECT [POC] QIDACANDBED Plan: Assessment and plan - 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 Doing well postoperatively with good pain control. Vital signs are stable. -IV fluids at 75 mL/h -Additional management per surgical team Type 1 diabetes mellitus-patient has had diabetes for more than 50 years with excellent control. Blood sugars have been rising since surgery. -Low-dose sliding scale insulin with additional bolus dosing as needed -Continue long-acting insulin at bedtime -Accu-Cheks 4 times daily and as needed in between Chronic atrial fibrillation-chronically anticoagulated. Good rate control so far. -Continue medical management -Restart anticoagulation when safe from a surgical standpoint, anticipate star ting tomorrow Thank you for the interesting consultation. The hospitalist service will continue to follow along. Please do not hesitate to call if there are specific questions or concerns. Keyur Gomez MD Requesting Provider: Dr. Dubois Date Consult Requested: 09/11/19 Reason for Consult: Medical management of diabetes and atrial fibrillation Patient History Reviewed: Yes Admission H&P Reviewed: No (Not currently available) Notified Requestor: Yes Time Spent (in minutes): 50
[2019-09-11] MEDS: Insulin Lispro 100 Unit/ML 3 ML KwikPen SUBCUT SCH ×3 (12:31→21:24)
[2019-09-11] MEDS: Insulin Glargine,Human Rec. Analog 100 Units/ML 3 ML Pen SUBCUT SCH (21:23)
[2019-09-12] MEDS ORDERED: Acetaminophen/HYDROcodone 325-5 MG Tab PO PRN (08:02)
[2019-09-12] MEDS ORDERED: Morphine 4 MG/ML Syringe IVPUSH PRN (08:03)
[2019-09-12] MEDS: Insulin Lispro 100 Unit/ML 3 ML KwikPen SUBCUT SCH ×4 (08:19→21:28)
--- NOTE | 2019-09-12 09:23 | PN ---
DATE OF SERVICE: 09/12/2019 SUBJECTIVE: The patient is doing very well. Pain is well controlled. No nausea, vomiting, shortness of breath, or chest pain. No GI activity yet. OBJECTIVE: VITAL SIGNS: Stable. CARDIOVASCULAR: Regular rhythm and rate. RESPIRATORY: Lungs clear to auscultation bilaterally. SKIN: Incision healing well. ASSESSMENT: Status post right hemicolectomy. PLAN: We will continue the clear liquids, but we will start with Ensure today. Also continue the Entereg. We will work on ambulation. In addition, we will stop her [employer]GE[employer], convert her to p.o. pain medications. Medicine Service will continue to work on fluid, electrolytes, and her diabetes. Lincoln Dubois MD /[id number]
[2019-09-12] MEDS: PARoxetine 20 MG Tab PO SCH (11:26)
[2019-09-12] MEDS: Amiodarone 200 MG Tab PO SCH (11:26)
--- NOTE | 2019-09-12 11:50 | PCM.CONSN ---
- General Info Date of Service: 09/12/19 Subjective Update: No acute events overnight. Patient has pretty good pain control with her abdominal pain at this time. No fevers. Blood sugars remain elevated but seem to be slowly trending down. She had some flushing this morning that seems to be getting better after her ACETYLENE TORCH BURNER was discontinued. She is not passing gas and has not had a bowel movement. Functional Status: Reports: Pain Controlled, Tolerating Diet - Review of Systems General: Denies: Fever Gastrointestinal: Denies: Flatus - Patient Data Vitals - Most Recent: Last Vital Signs Temp 36.1 C 09/12/19 10:36 Pulse 56 L 09/12/19 10:36 Resp 16 09/12/19 06:53 BP 120/36 L 09/12/19 10:36 Pulse Ox 97 09/12/19 10:36 Weight - Most Recent: 58.06 kg I&O - Last 24 Hours: Intake & Output 09/11/19 09/12/19 09/12/19 22:59 06:59 14:59 Intake Total 2164 1156 Output Total 180 350 Balance 1984 806 Lab Results Last 24 Hours: Laboratory Results - last 24 hr 09/12/19 09/12/19 09/12/19 Range/Units 05:00 05:00 11:30 WBC 11.2 H (4.5-11.0) K/uL RBC 3.41 (3.30-5.50) M/uL Hgb 10.0 L (12.0-15.0) g/dL Hct 32.3 L (36.0-48.0) % MCV 95 (80-98) fL MCH 29 (27-31) pg MCHC 31 L (32-36) % Plt Count 191 (150-400) K/uL Sodium 132 L (140-148) mmol/L Potassium 4.9 (3.6-5.2) mmol/L Chloride 102 (100-108) mmol/L Carbon Dioxide 23 (21-32) mmol/L Anion Gap 11.9 (5.0-14.0) mmol/L BUN 26 H D (7-18) mg/dL Creatinine 1.1 H (0.6-1.0) mg/dL Est Cr Clr Drug Dosing 31.48 mL/min Estimated GFR (MDRD) 47 L (>60) Glucose 278 H (74-106) mg/dL POC Glucose 332 H (74-106) MG/DL Calcium 7.3 L (8.5-10.1) mg/dL Med Orders - Current: Current Medications Hydrocodone Bitart/Acetaminophen (Santaquin 325-5 Mg) 1 tab PO Q4H PRN PRN Reason: Pain (mild 1-3) Hydrocodone Bitart/Acetaminophen (Santaquin 325-5 Mg) 2 tab PO Q4H PRN PRN Reason: Pain (moderate 4-6) Alvimopan (Entereg) 12 mg PO Q12H [facility] Stop: 09/17/19 20:01 Last Admin: 09/12/19 08:19 Dose: 12 mg Documented by: Amiodarone HCl (Cordarone) 200 mg PO DAILY [facility] Last Admin: 09/12/19 11:26 Dose: 200 mg Documented by: Apixaban (Eliquis) 2.5 mg PO BID [facility] Benzocaine/Menthol (Cepacol Sore Throat) 1 lozenge MUCMEM Q1H PRN PRN Reason: Sore Throat Doxycycline Hyclate (Vibramycin) 100 mg PO BID [facility] Hydroxyzine HCl (Vistaril) 100 mg IM Q4H PRN PRN Reason: Nausea Sodium Chloride (Normal Saline) 250 mls @ 250 mls/hr IV ASDIRECTED [facility] Last Admin: 09/11/19 04:12 Dose: 250 mls/hr Documented by: Sodium Chloride (Normal Saline) 1,000 mls @ 75 mls/hr IV ASDIRECTED [facility] Last Admin: 09/11/19 23:37 Dose: 75 mls/hr Documented by: Insulin Glargine (Lantus Solostar) 8 units SUBCUT BEDTIME [facility] Last Admin: 09/11/19 21:23 Dose: 8 units Documented by: Insulin Human Lispro (Humalog) 0 unit SUBCUT QIDACANDBED [facility]; Protocol Last Admin: 09/12/19 11:29 Dose: 8 units Documented by: Levothyroxine Sodium (Synthroid) 100 mcg PO DAILY@729 [facility] Morphine Sulfate (Morphine) 1 - 4 mg IVPUSH Q2H PRN PRN Reason: Pain Paroxetine HCl (Paxil) 20 mg PO DAILY [facility] Last Admin: 09/12/19 11:26 Dose: 20 mg Documented by: Simvastatin (Zocor) 20 mg PO BEDTIME [facility] Discontinued Medications Bupivacaine HCl/Epinephrine Bitart (Marcaine 0.5%/Epinephrine 1:200,000) Confirm Administered Dose 50 ml .ROUTE .STK-MED ONE Stop: 09/10/19 22:50 Cefazolin Sodium (Ancef) Confirm Administered Dose 2 gm .ROUTE .STK-MED ONE Stop: 09/10/19 22:54 Ropivacaine 30 ml/Dexamethasone 8 mg/Epinephrine HCl 0.4 mg/ Sodium Chloride 47.6 ml 0 ml NERVRT ASDIRECTED [facility] Dexamethasone (Dexamethasone) Confirm Administered Dose 4 mg .ROUTE .STK-MED ONE Stop: 09/10/19 22:55 Fentanyl (Sublimaze) 50 mcg IVPUSH ONETIME ONE Stop: 09/10/19 19:48 Last Admin: 09/10/19 20:32 Dose: 50 mcg Documented by: Fentanyl (Sublimaze) 50 mcg IVPUSH ONETIME ONE Stop: 09/10/19 21:28 Last Admin: 09/10/19 21:34 Dose: 50 mcg Documented by: Fentanyl (Sublimaze) Confirm Administered Dose 250 mcg .ROUTE .STK-MED ONE Stop: 09/10/19 22:56 Fentanyl (Sublimaze) Confirm Administered Dose 100 mcg .ROUTE .STK-MED ONE Stop: 09/10/19 23:52 Glycopyrrolate (Robinul) Confirm Administered Dose 1 mg .ROUTE .STK-MED ONE Stop: 09/10/19 22:55 Hydromorphone HCl (Dilaudid) 1 mg IVPUSH ONETIME ONE Stop: 09/10/19 22:09 Last Admin: 09/10/19 22:39 Dose: Not Given Documented by: Hydromorphone HCl (Dilaudid Inside Phone Sales 15 Mg In Ns 30 Ml) Confirm Administered Dose 15 mg IV .STK-MED ONE Stop: 09/11/19 00:16 Last Admin: 09/11/19 00:28 Dose: Not Given Documented by: Hydromorphone HCl (Dilaudid Inside Phone Sales 15 Mg In Ns 30 Ml) 0 mg IV ASDIRECTED PRN; Protocol PRN Reason: ACETYLENE TORCH BURNER PAIN CONTROL Last Admin: 09/11/19 00:20 Dose: 15 mg Documented by: Sodium Chloride (Normal Saline) 1,000 mls @ 1,000 mls/hr IV ASDIRECTED [facility] Last Admin: 09/10/19 21:25 Dose: 1,000 mls/hr Documented by: Sodium Chloride (Normal Saline) 100 mls @ 3 mls/sec IV ASDIRECTED [facility] Last Admin: 09/10/19 21:25 Dose: 3 mls/sec Documented by: Metronidazole (Flagyl 500 Mg In Ns 100 Ml) Confirm Administered Dose 100 mls @ as directed .ROUTE .STK-MED ONE Stop: 09/10/19 22:52 Sodium Chloride (Normal Saline) Confirm Administered Dose 10 mls @ as directed .ROUTE .[facility] ONE Stop: 09/10/19 22:54 Sodium Chloride (Normal Saline) 1,000 mls @ 125 mls/hr IV ASDIRECTED [facility] Last Admin: 09/11/19 11:31 Dose: 125 mls/hr Documented by: Metronidazole 500 mg/ Premix 100 mls @ 100 mls/hr IV ONETIME ONE Stop: 09/10/19 23:54 Last Admin: 09/10/19 23:10 Dose: 100 mls/hr Documented by: Sodium Chloride (Normal Saline) Confirm Administered Dose 20 mls @ as directed .ROUTE .[facility] ONE Stop: 09/10/19 23:06 Lactated Ringer's (Ringers, Lactated) Confirm Administered Dose 1,000 mls @ as directed .ROUTE .[facility] ONE Stop: 09/10/19 23:41 Sodium Chloride (Normal Saline) 250 mls @ 250 mls/hr IV NOW ONE Stop: 09/11/19 06:44 Last Admin: 09/11/19 06:05 Dose: Not Given Documented by: Insulin Human Lispro (Humalog) 0 unit SUBCUT QIDACANDBED [facility]; Protocol Last Admin: 09/12/19 08:19 Dose: 3 unit Documented by: Insulin Human Lispro (Humalog) 5 unit SUBCUT ONETIME ONE Stop: 09/11/19 12:17 Last Admin: 09/11/19 12:32 Dose: 5 units Documented by: Insulin Human Lispro (Humalog) 5 unit SUBCUT ONETIME ONE Stop: 09/11/19 13:41 Last Admin: 09/11/19 13:52 Dose: 5 units Documented by: Insulin Human Lispro (Humalog) 10 unit SUBCUT ONETIME ONE Stop: 09/11/19 17:42 Last Admin: 09/11/19 17:45 Dose: 10 units Documented by: Iopamidol (Isovue-300 (61%)) 100 ml IV ONETIME ONE Stop: 09/10/19 20:07 Last Admin: 09/10/19 21:25 Dose: 100 ml Documented by: Naloxone HCl (Narcan) 0.1 mg IV ASDIRECTED PRN PRN Reason: decreased respiratory rate Neostigmine Methylsulfate (Neostigmine) Confirm Administered Dose 5 mg .ROUTE .STK-MED ONE Stop: 09/10/19 22:55 Ondansetron HCl (Zofran) 4 mg IVPUSH ONETIME ONE Stop: 09/10/19 19:48 Last Admin: 09/10/19 20:27 Dose: 4 mg Documented by: Ondansetron HCl (Zofran) Confirm Administered Dose 4 mg .ROUTE .STK-MED ONE Stop: 09/10/19 22:55 Propofol (Diprivan 20 Ml) Confirm Administered Dose 200 mg .ROUTE .STK-MED ONE Stop: 09/10/19 22:55 Rocuronium [place] (Zemuron) Confirm Administered Dose 50 mg .ROUTE .STK-MED ONE Stop: 09/10/19 22:55 Scopolamine (Transderm-Scop) Confirm Administered Dose 1.5 mg .ROUTE .STK-MED ONE Stop: 09/10/19 23:34 Sodium Chloride (Saline Flush) 10 ml FLUSH ONETIME ONE Stop: 09/10/19 20:07 Last Admin: 09/10/19 21:25 Dose: 10 ml Documented by: Succinylcholine Chloride (Quelicin) Confirm Administered Dose 200 mg .ROUTE .STK-MED ONE Stop: 09/10/19 22:55 - Exam Quality Assessment: Supplemental Oxygen General: Alert, Oriented, Cooperative, No Acute Distress Lungs: Clear to Auscultation, Normal Respiratory Effort Cardiovascular: Regular Rate, Regular Rhythm GI/Abdominal Exam: Normal Bowel Sounds, Soft, No Distention Extremities: No Pedal Edema. No: Increased Warmth Skin: Warm, Dry Psy/Mental Status: Alert, Normal Affect Sepsis Event Note - Evaluation Sepsis Screening Result: No Definite Risk - Focused Exam Vital Signs: Vital Signs Temp Pulse Resp BP Pulse Ox 09/12/19 10:36 36.1 C 56 L 120/36 L 97 09/12/19 06:53 36.1 C 16 121/44 L 94 L 09/12/19 03:08 36.2 C 57 L 18 136/46 L 90 L 09/12/19 01:00 92 L Date Exam was Performed: 09/12/19 Time Exam was Performed: 17:50 Consult PN Assessment/Plan POD#: 2 Procedures: Procedures ASSAY OF TROPONIN QUANT (09/18/13) ASSAY THYROID STIM HORMONE (09/18/13) COMPLETE CBC W/AUTO DIFF WBC (09/18/13) COMPREHEN METABOLIC PANEL (09/18/13) ECG/MONITORING AND ANALYSIS (11/13/13) EMERGENCY DEPT VISIT (10/25/17) EMERGENCY DEPT VISIT (12/05/14) EMERGENCY DEPT VISIT (12/05/14) EMERGENCY DEPT VISIT (09/18/13) REMOTE 30 DAY ECG REV/REPORT (11/13/13) ROUTINE VENIPUNCTURE (09/18/13) X-RAY EXAM OF TOE(S) (10/25/17) Problem List Initiated/Reviewed/Updated: Yes My Orders Last 24 Hours: My Active Orders 09/11/19 12:19 Antiembolic Devices [RC] .Routine SCD [Sequential Compression Device] [OM.PC] Routine 09/11/19 12:30 Sodium Chloride 0.9% [Normal Saline] 1,000 ml IV ASDIRECTED 09/11/19 21:00 Insulin Glarg,Human.Rec.Analog [LantUS Solostar] 8 units SUBCUT BEDTIME 09/12/19 10:45 Amiodarone [Cordarone] 200 mg PO DAILY PARoxetine [Paxil] 20 mg PO DAILY 09/12/19 11:00 Insulin Lispro [HumaLOG] See Protocol SUBCUT QIDACANDBED 09/12/19 11:48 DC Santos Catheter [Urinary Catheter Removal] [RC] PER UNIT ROUTINE 09/12/19 11:49 PT Evaluation and Treatment [CONS] Routine 09/12/19 16:30 GLUCOSE POC LAB TO COLLECT JPM [POC] Routine 09/12/19 21:00 GLUCOSE POC LAB TO COLLECT JPM [POC] Routine Apixaban [Eliquis] 2.5 mg PO BID Doxycycline [Vibramycin] 100 mg PO BID Simvastatin [Zocor] 20 mg PO BEDTIME 09/13/19 05:00 BASIC METABOLIC PANEL,BMP [CHEM] Timed CBC W/O DIFF,HEMOGRAM [HEME] Timed (1) 09/13/19 07:30 GLUCOSE POC LAB TO COLLECT [POC] QIDACANDBED Levothyroxine [Synthroid] 100 mcg PO DAILY@0730 09/13/19 11:30 GLUCOSE POC LAB TO COLLECT [POC] QIDACANDBED 09/13/19 16:30 GLUCOSE POC LAB TO COLLECT [POC] QIDACANDBED 09/13/19 21:00 GLUCOSE POC LAB TO COLLECT [POC] QIDACANDBED 09/14/19 07:30 GLUCOSE POC LAB TO COLLECT [POC] QIDACANDBED 09/14/19 11:30 GLUCOSE POC LAB TO COLLECT [POC] QIDACANDBED 09/14/19 16:30 GLUCOSE POC LAB TO COLLECT [POC] QIDACANDBED 09/14/19 21:00 GLUCOSE POC LAB TO COLLECT [POC] QIDACANDBED 09/15/19 07:30 GLUCOSE POC LAB TO COLLECT [POC] QIDACANDBED 09/15/19 11:30 GLUCOSE POC LAB TO COLLECT [POC] QIDACANDBED 09/15/19 16:30 GLUCOSE POC LAB TO COLLECT [POC] QIDACANDBED 09/15/19 21:00 GLUCOSE POC LAB TO COLLECT [POC] QIDACANDBED 09/16/19 07:30 GLUCOSE POC LAB TO COLLECT [POC] QIDACANDBED 09/16/19 11:30 GLUCOSE POC LAB TO COLLECT [POC] QIDACANDBED 09/16/19 16:30 GLUCOSE POC LAB TO COLLECT [POC] QIDACANDBED Plan: Assessment and plan - 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 Doing well postoperatively with good pain control. Vital signs are stable. Not passing gas yet. -IV fluids at 75 mL/h, may saline lock once p.o. intake improves -Additional management per surgical team -Santos catheter will be removed today Type 1 diabetes mellitus-moderate elevation of blood sugars with some improvement over the past 24 hours. -Medium-dose sliding scale insulin with additional bolus dosing as needed -Continue long-acting insulin at bedtime -Accu-Cheks 4 times daily and as needed in between Chronic atrial fibrillation-chronically anticoagulated. Good rate control so far. -Continue medical management -Restart anticoagulation adlagisa Gomez MD
[2019-09-12] MEDS: Apixaban 5 MG Tab PO SCH (20:26)
[2019-09-12] MEDS: Doxycycline 100 MG Cap PO SCH (20:26)
[2019-09-12] MEDS ORDERED: Simvastatin 20 MG Tab PO SCH (21:00)
[2019-09-12] MEDS: Insulin Glargine,Human Rec. Analog 100 Units/ML 3 ML Pen SUBCUT SCH (21:29)
[2019-09-12] MEDS: Acetaminophen/HYDROcodone 325-5 MG Tab PO PRN (22:22)
[2019-09-13] MEDS: Acetaminophen/HYDROcodone 325-5 MG Tab PO PRN (02:45)
[2019-09-13] MEDS ORDERED: Levothyroxine 100 MCG Tab PO SCH (07:30)
[2019-09-13 08:24] VITALS: BP 190/75; PULSE 70
[2019-09-13] MEDS: Amiodarone 200 MG Tab PO SCH (08:39)
[2019-09-13] MEDS: PARoxetine 20 MG Tab PO SCH (08:40)
[2019-09-13] MEDS: Apixaban 5 MG Tab PO SCH (08:40)
[2019-09-13] MEDS: Doxycycline 100 MG Cap PO SCH (08:40)
[2019-09-13] MEDS: Insulin Lispro 100 Unit/ML 3 ML KwikPen SUBCUT SCH ×3 (09:12→12:13)
--- NOTE | 2019-09-13 10:40 | PN ---
DATE OF SERVICE: 09/13/2019 SUBJECTIVE: The patient is doing very well today. Pain is 0/10 to 1/10. No nausea, vomiting, shortness of breath, or chest pain. She is afebrile with a normal white count. OBJECTIVE: VITAL SIGNS: Stable. CARDIOVASCULAR: Regular rhythm and rate. RESPIRATORY: Lungs clear to auscultation bilaterally. ASSESSMENT: Status post right hemicolectomy. PLAN: The patient will be discharged today. See discharge summary for further details. Lincoln Dubois MD /[id number]
--- NOTE | 2019-09-13 13:28 | DISCH ---
DISCHARGE SUMMARY: Status post right hemicolectomy. SUMMARY OF HOSPITAL COURSE: This is a pleasant 83-year-old female who underwent a right hemicolectomy emergently due to a cecal volvulus. The patient did well through her hospitalization. Prior to discharge, her pain was well controlled. She had no nausea, vomiting, shortness of breath, or chest pain. She is having daily bowel movements, she was afebrile, and her white blood cell count was normal. FOLLOWUP: With Surgery in 7 to 14 days. ACTIVITY: No lifting greater than 30 pounds for 30 days. DISCHARGE MEDICATIONS: Please see MAR.
--- NOTE | 2019-09-13 13:40 | OR ---
DATE OF PROCEDURE: 09/10/2019 SURGEON: Lincoln Dubois MD PROCEDURES PERFORMED: 1. Right hemicolectomy with anastomosis (96886). 2. Removal of peritoneal fluid, right abdomen (69898). COMPLICATIONS: None. GERIATRIC PSYCHIATRIST: None. PREOPERATIVE DIAGNOSIS: Cecal volvulus. POSTOPERATIVE DIAGNOSIS: Cecal volvulus. RISKS: Risks, benefits, alternatives, and limitations including, but not limited to infection, bleeding, and anastomotic failure, sepsis, , and other risks not listed here were explained to the patient and family, and they wished to proceed. PROCEDURE IN DETAIL: The patient was placed in supine position. A midline abdominal incision was made. This was approximately 10 cm in size. This was carried down with electrocautery, and the peritoneum was opened sharply. The volvulus was readily identified and was consistent with a cecal volvulus. This was around a band, which was also ligated. The patient was hemodynamically stable. There was a fluid collection in the right quadrant, which was suctioned and removed. There was no evidence of perforation. Therefore, it was determined to proceed with a right hemicolectomy. The ileum was transected using pizano load staplers and the colon would be resected at the level of the transverse colon. In conjunction with this for full mobilization to create anastomosis, the splenic flexure was mobilized using electrocautery. No abnormal bleeding was noted. Mesenteric staple loads were used to transect the mesentery. Because this was not an oncological case, the mesentery was transected in proximity to the bowel to further preserve the vascular arcade. The anastomosis would be performed extracorporeally in a [id number] functional end-to-end anastomosis. This was performed with double 60 load staplers. The anastomosis was performed in this manner by using electrocautery to create a defect, firing the simba x2, using Allis clamps to tent the defect, and transecting and closing the defect with another enteric load. The "anti-zip" stitch was also placed. The mesenteric defect was closed with 3-0 Vicryl in a running fashion. The abdomen was irrigated. The anastomosis was irrigated. Gloves and gown were changed. No gross spillage was noted at any time during this procedure. Tisseel was placed on the anastomosis. This was then placed back into the abdomen. The fascia was closed with #1 Vicryl in a running suture and simba were applied. The patient tolerated the procedure well. Lincoln Dubois MD /[id number]
--- NOTE | 2019-09-13 15:39 | CONS ---
DATE OF SERVICE: 09/10/2019 REFERRING PHYSICIAN: CONSULTING PHYSICIAN: Lincoln Dubois MD REASON FOR CONSULTATION: Evaluation of abdominal pain. HISTORY OF PRESENT ILLNESS: This is a pleasant 83-year-old female who presented to the emergency room with significant abdominal pain and nausea. The patient underwent a CT scan, which showed a cecal volvulus. Her pain is described as 5 to 6/10. This was modified by uncontrolled diabetes. PAST MEDICAL HISTORY: Atrial fibrillation, hypercholesterolemia, Eliquis use, hypertension. Her diabetes is reportedly type 1, uncontrolled, over approximately 55 years. PAST SURGICAL HISTORY: Includes tubal ligation and appendectomy. SOCIAL HISTORY: She is not a smoker. FAMILY HISTORY: Noncontributory. REVIEW OF SYSTEMS: GENERAL: The patient is appropriate for her condition. HEENT: No changes. CARDIOVASCULAR: She does have a history of atrial fibrillation. RESPIRATORY: No current shortness of breath. GASTROINTESTINAL: As above. GENITOURINARY: No dysuria. NEUROLOGIC: No symptoms. PSYCH: No changes. The remainder of systems are reviewed and are negative. PHYSICAL EXAMINATION: VITAL SIGNS: Temperature 97.7, blood pressure 120/60, respirations 16, and 95% on 2 L. HEENT: Pupils are equal. NECK: Supple. LUNGS: Clear. CARDIOVASCULAR: Regular rhythm and rate. ABDOMEN: Mildly distended. Mild pain with palpation. EXTREMITIES: Full range of motion. NEUROLOGIC: Oriented x3. PSYCH: No gross depression. IMAGING: CT scan I did review as above. ASSESSMENT: Cecal volvulus. PLAN: The patient will be taken to the operating room. Because the patient is currently stable and most likely will remain, we will plan for an extended right hemicolectomy. If she develops instability, we will consider a pexy as a poor second alternate choice. The risks, benefits, alternatives, and limitations including, but not limited to infection, bleeding, and perforation were all explained to the patient. We also discussed anastomotic failure, septic issues, and other risks not listed here. We also discussed higher bleeding potential due to her anticoagulation; however, this is an emergency surgery and that risk will have to be accepted. Lincoln Dubois MD /[id number]
== END 2019-09-13 13:02 | disposition home or self-care (01) | DRG 330 ==
LOC: JP.ED 17:49 → JP.SDS 22:30 → JP.MS 22:52 → JP.ED 23:11 → JP.MS 09-11 00:50 → UNDOADMIN 09-11 00:50 → UNDODISIN 09-13 13:02
PROVIDERS: ADMIT Surgery; ATTEND Surgery
PROC: 0DTF0ZZ Resection of Right Large Intestine, Open Approach (ICD-10-PCS; principal; 2019-09-10)
PROC: 0W9G0ZZ Drainage of Peritoneal Cavity, Open Approach (ICD-10-PCS; 2019-09-10)
DX: K56.2 Volvulus (principal); I48.20 Chronic atrial fibrillation, unspecified; Z79.01 Long term (current) use of anticoagulants; E78.00 Pure hypercholesterolemia, unspecified; Z79.4 Long term (current) use of insulin; I10 Essential (primary) hypertension; E10.9 Type 1 diabetes mellitus without complications; Z79.890 Hormone replacement therapy; Z79.899 Other long term (current) drug therapy
CPT/HCPCS: 36415; 74177; 80053; 81001; 82009; 83605; 83690; 84484; 85027; 85610; 85730; 88307; 93005; 93010; 96361; 96374; 96375; 96376; 99284; 99285; A9270 ×2; J0171; J0330; J0690; J1100 ×2; J1170; J2405 ×2; J2704; J2710; J2795; J3010 ×4; J3490 ×3; J7030; J7050 ×2; J7120; Q9967; 80048; 82962; 85025; 94762; 97161-GP; 97530-GP; 99231; J1815; J1815-GY